=== PATIENT | female | born 1940 | race Caucasian/White ===

== ENCOUNTER 2023-08-15 07:54 | Observation (INO) ==
--- NOTE | 2023-07-15 10:25 | PAT Medication Instructions ---
Medication Instructions Date of Service July 15, 2023 Home Medications amlodipine 10 mg tablet 10 mg PO QAM multivit-iron 18 mg-folic acid 400 mcg-calcium 500 mg-minerals tablet (Women's One Daily) 1 tab PO QAM vitamin E 1 cap PO QAM STOP taking 2 weeks before surgery (or as soon as possible if surgery is within 2 weeks) vitamin E 1 cap PO QAM DO NOT take the morning of surgery multivit-iron 18 mg-folic acid 400 mcg-calcium 500 mg-minerals tablet (Women's One Daily) 1 tab PO QAM Take morning of surgery With a small sip of water, OTHERWISE NOTHING TO EAT OR DRINK AFTER MIDNIGHT: amlodipine 10 mg tablet 10 mg PO QAM Other Notes If you have any questions please call us at [phone] or [phone] or [phone] or [phone]
--- NOTE | 2023-07-16 08:10 | Anesthesiology Consultation ---
Date of Service July 16, 2023 Assessment & Plan (1) Encounter for pre-operative examination: - Infectious disease screening: Per assessment on 07/16/23: No known infectious disease contacts or current infectious disease symptoms. No noted Covid positive test result in past 90 days. - Outpatient joint assessment: Pt currently scheduled for inpatient pathway. If surgeon requests review for outpatient joint pathway, patient is not recommeded candidate for outpatient joint program from anesthesia standpoint. - Preop EKG: Performed 07/16/23 notes fusion complexes. Note written to PCP- Awaiting PCP EKG response + surgeon-ordered preop evaluation (MARY Osorio, appt 07/18). Chart Review Chart Review: Patient seen in Pre Admission Testing Teaching & Discussion Pre-Anesthesia Teaching/Discussion Notes: Instructed NPO after midnight before surgery,except medications with 15 cc of water. Medication instructions provided according to the PAT guidelines. History Surgery Operation Date: 08/15/23 12:30 Proposed Procedures p Left Total Knee Arthroplasty - Sree Moya MD Height/Weight Height: 5 ft Weight: 70 kg Allergies Allergy/AdvReac Type Severity Reaction Status Date / Time codeine Allergy Unknown Dizziness, Verified 07/16/23 09:41 mental changes Medications Home Medications Medication Instructions Recorded Confirmed Last Taken amlodipine 10 mg tablet 10 mg PO QAM 07/11/23 07/11/23 Unknown multivit-iron 18 mg-folic acid 400 1 tab PO QAM 07/11/23 07/11/23 Unknown mcg-calcium 500 mg-minerals tablet (Women's One Daily) vitamin E 1 cap PO QAM 07/11/23 07/11/23 Unknown atorvastatin 20 mg tablet 20 mg PO DAILY 07/16/23 07/16/23 Unknown Past Medical History Medical History Hypertension Exercise / Class Metabolic Activity III < 4 Walking/Shop/Light housework Past Surgical History Surgical History History of total right knee replacement Hx of total hysterectomy with removal of both tubes and ovaries Hx of appendectomy Past Anesthesia History No Family Hx of Anesthesia Complications and Other (Awareness towards end of right TKA) History of PONV No Hx of PONV and No Hx of Motion Sickness Social History Smoking Status: Never smoker Do You Dip or Chew Tobacco: No Hx Alcohol Use: No Hx Substance Use: No substance use type: does not use Review of Systems Patient denies chest pain, shortness of breath, dyspnea on exertion, fever, chills, cough, wheezing, palpitations. Physical Exam Vital Signs VITALS BP 138/66 P 85 TEMP 98.2 SP02 96%RA RESP 16 PHYSICAL Mildly decreased cervical extension range of motion. Full TMJ range of motion. TMD 3.5 finger breaths Mallampati Score 2 Dentition: intact Lungs: coarse breath sounds Cardiac: regular rate and rhythm, no murmurs noted Spine: normal Carotid arteries: negative bruit Extremities: no LE edema Lab Results Anesthesia Preop Results Results Anesthesia Widget: WBC 5.26 K/ul (4.8-10.8) 07/16/23 Hgb 12.9 g/dl (12.0-16.0) 07/16/23 Hct 40.4 % (37.0-47.0) 07/16/23 Plt 174 K/uL (130-400) 07/16/23 Na 141 mmol/L (136-145) 07/16/23 K 3.8 mmol/L (3.5-5.1) 07/16/23 Cl 104 mmol/L (98-107) 07/16/23 CO2 30 mmol/L (21-32) 07/16/23 BUN 11 mg/dl (6-23) 07/16/23 Creat 0.67 mg/dl (0.6-1.2) 07/16/23 Glucose Level 86 mg/dl (70-99(Fasting)) 07/16/23 PT 10.7 Seconds (9.0-12.0) 07/16/23 PTT 30 Seconds (21-31) 07/16/23 INR 1.0 (0.9-1.1) 07/16/23 Urine Color Yellow 07/16/23 Urine Appearance Clear (Clear) 07/16/23 Urine pH 7.0 (4.5-7.5) 07/16/23 Urine Specific Mccammon 1.015 (1.000-1.030) 07/16/23 Urine Protein Negative (Negative) 07/16/23 Urine Glucose (UA) Negative (Negative) 07/16/23 Urine Ketones Negative (Negative) 07/16/23 Urine Blood Negative (Negative) 07/16/23 Urine Nitrite Negative (Negative) 07/16/23 Urine Bilirubin Negative (Negative) 07/16/23 Urine Urobilinogen Negative (Negative) 07/16/23 Urine Leukocyte Esterase Negative (Negative) 07/16/23 Blood Type O Positive 07/16/23 Antibody Screen NEGATIVE 07/16/23 Testing Electrocardiogram Date: 07/16/23 SR with fusion complexes and aberrant conduction at 79bpm. iRBBB. "Otherwise normal ECG" Chest X-Ray Date: 07/16/23 FINDINGS: Cardiomediastinal and hilar silhouettes are within normal limits. No pneumothorax, pleural effusion or airspace consolidation. Degenerative changes of the shoulders and spine. There are a few healed chronic left-sided rib fractures. IMPRESSION: No acute process.
--- NOTE | 2023-08-13 11:33 | History & Physical Report ---
Date of Service August 13, 2023 Assessment & Plan (1) Primary osteoarthritis of left knee: Plan: Treatment options discussed with the patient. She has failed conservative measures and would like to proceed with surgery. Risks, benefits and alternatives to surgery including but not limited to infection, DVT, pain, stiffness, need for revision surgery, damage to blood vessels, damage to nerves, PE, , were discussed with the patient and they wish to proceed. Plan on left total knee arthroplasty scheduled for 08/15/[address] Moya at [facility]. Plan on home therapy post op. Plan on aspirin 81mg twice daily for 1 mo post op for DVT prophylaxis. All questions answered. Patient will follow up post op. History of Present Illness Chief Complaint: Left knee pain Primary Care Provider: Campos Victoria MD 83yo female with PMHx significant for HTN who presents with ongoing left knee pain. Pain is interfering with her daily activity. She has failed conservative measures. She would like to proceed with surgery. Patient denies headaches, sweats, fevers, chills, double vision, blurred vision, cough, sore throat, dysphagia, chest pain, sob, wheezing, n/v/d/c, numbness, tingling, fatigue, urinary symptoms, mood disorders. ROS positive for left knee pain and stiffness. Allergies Allergy/AdvReac Type Severity Reaction Status Date / Time codeine Allergy Unknown Dizziness, Verified 07/16/23 09:41 mental changes Home Medications Medication Instructions Recorded Confirmed Type amlodipine 10 mg tablet 10 mg PO QAM 07/11/23 07/11/23 History multivit-iron 18 mg-folic acid 400 1 tab PO QAM 07/11/23 07/11/23 History mcg-calcium 500 mg-minerals tablet (Women's One Daily) vitamin E 1 cap PO QAM 07/11/23 07/11/23 History atorvastatin 20 mg tablet 20 mg PO DAILY 07/16/23 07/16/23 History Past Med/Surg History Medical History Hypertension Surgical History History of total right knee replacement Hx of total hysterectomy with removal of both tubes and ovaries Hx of appendectomy Social History Smoking Status: Never smoker Second Hand Exposure: No; Do You Dip or Chew Tobacco: No; Tobacco Cessation Education Requested by Patient: No Hx Alcohol Use: No Hx Substance Use: No Preferred Language: Luxembourgish Communication Ability: Effective Compensation Consulting Manager Required: No Beliefs That Will Affect Care: None Current Living Situation: Spouse Other Information That Helps Us Care for You: No Feels Safe at Home: Yes Safety Concerns: Feels Safe At This Time Assistive Devices: Glasses Review of Systems All systems reviewed & are unremarkable except as noted in HPI & below Physical Exam Constitutional: well developed and well nourished; no acute distress Eyes: PERRL, conjunctivae normal, anicteric sclerae ENMT: external ear and nose normal, oropharynx normal Neck: trachea midline, no thyromegaly Respiratory: normal respiratory effort, lungs clear to auscultation Cardiovascular: RRR, no murmur, no edema Musculoskeletal: Left knee: Valgus alignment. Mild effusion. ROM 0-120 degrees. Stable to valgus and varus stress test. Skin: no rashes, warm and dry Neurologic: patellar DTR's 2+ bilat, sensation intact Psychiatric: A+Ox3, euthymic affect Results & Data Diagnostic Findings Four view x-rays left knee demonstrate lateral compartment osteoarthritis and patellofemoral osteoarthritis with [id number] lateral compartment on weight- bearing films with subchondral sclerosis and osteophytes. Patient also has osteophytes patellofemoral joint. Patella central line but they are fairly large osteophytes patellofemoral joint and some osteopenia of the bones. Right knee has a well-aligned cemented [employer] Nephew journey knee replacement.
[~2023-08-15 07:54] MED LIST: ACETAMINOPHEN 500 MG TAB PO SCH; BUPIVACAINE 0.5 % 5 MG/1 ML PF 10ML VIAL ONE; CeleBREX 200 MG CAP PO SCH; FAMOTIDINE 20 MG TAB PO SCH; GABAPENTIN 300 MG CAP PO SCH; LR 60ML/HR IV SCH; METOCLOPRAMIDE HCL 10 MG TABLET PO SCH; MIDAZOLAM HCL 1 MG/ML 2ML VIAL ONE; ROPIV 0.5% 246mg, Ketorolac 30mg, EPINEPHrine 0.5mg in NSS INFIL SCH; ROPIVACAINE 0.5% 5 MG/ML 30 ML VIAL ONE; TRANEXAMIC ACID 1,000 MG **IV Intra-op IV SCH; TRANEXAMIC ACID 1,000 MG **IV Pre-op IV SCH; ceFAZolin 2000MG 2,000 MG/15 ML SYR IV SCH; dexAMETHasone**PF** 10 MG/ML VIAL IV SCH
--- OUTSIDE RECORDS SUMMARY | 2023-08-15 09:17 | External Medical Summary | Summary of Care ---
Author Name Unknown Organization [facility] Address [address] [place] [address] Phone [phone] Care Team Providers Care Contracts Director Name Role Phone Campos Skaggs MD Primary Care P rovider Reason for Visit * Reason Comments pre-op exam Patient is here for a pre-op physical exam. Patient states she has no concerns. Encounter Details Date Type Department Care Team (Latest Contact Info) Description 07/18/2023 9:30 AM EST Office Visit [address] [phone] Campos Skaggs MD [address] [place] [address] [phone] Other specified pre-operative examination*; Primary osteoarthritis of one knee, left; HTN, goal below 140/90; Dyslipidemia, goal LDL below 100; Incomplete right bundle branch block Allergies Active Allergy Reactions Criticality Noted Date Comments Codeine Other (Please comment) 06/25/2023 Tylenol with codeine Patient states she becomes spaced out and dizzy when taking this. documented as of this encounter (statuses as of 07/18/2023) Medications Medication Sig Dispensed Refills Start Date End Date Status VITAMIN E 400 UNIT PO CAPS one daily 0 Active WOMENS ONE DAILY PO TABS one daily 0 Active CALCIUM 500 +D 500-400 MG-UNIT PO TABS one daily 0 Active Atorvastatin Calcium 20 MG Oral Tablet (Lipitor)Indications: Dyslipidemia, goal LDL below 100 TAKE 1 TABLET BY MOUTH DAILY 90 Tablet 1 05/06/2023 Active amLODIPine Besylate 10 MG Oral Tablet (Norvasc)Indications: HTN, goal below 140/90 TAKE 1 TABLET BY MOUTH DAILY 90 Tablet 1 05/06/2023 Active Trospium Chloride 20 MG Oral Tablet (Sanctura)Indications :OAB (overactive bladder) Take 1 Tablet by mouth in the morning and 1 Tablet before bedtime. 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 documented as of this encounter (statuses as of 07/18/2023) Resolved Problems Problem Noted Date Diagnosed Date Resolved Date Menopause 12/15/2007 04/09/2017 NONE 11/24/2003 12/15/2007 rheumatic fever 11/25/2017 Overview: late 30s documented as of this encounter (statuses as of 07/18/2023) Immunizations Name Administration Dates Next Due COVID-19 mRNA, LNP-s, No Pre serve, 2-Dose Series (Moderna) 10/08/2020,09/03/2020 COVID-19, mRNA, LNP-s, PF, B ooster, 100mcg/0.5mg (Moderna) 06/14/2021 Pneumococcal Conjugate Vacc, 13 Valent (Prevnar) 09/20/2016 Pneumococcal Polysaccharide PPV23 (Pneumovax) 06/20/2006 Season Influenza, Quad, PF, Adjuvanted, 65+ Yrs, IM (FLUAD) 05/22/2021,07/27/2020 Seasonal Influenza, PF, 6 M & above, IM , (FluLaval or Fluzone) 06/09/2018,07/17/2017 Seasonal Influenza, Quadriva lent Hd (Fluzone Hd) 05/17/2023,08/30/2022 Seasonal Influenza, Quadriva lent, No Preserve, IM 08/16/2016,08/11/2015 Seasonal Influenza, Split, I IV3, With Preserve, Inj 07/02/2014,06/22/2013,08/20/2012,05/17,05/17/2010,06/22/2009,06/08/2008 ,06/20/2006 Seasonal Influenza, Trivalen t, Adjuvanted, 65+ yrs 08/27/2019 TDAP (age 10 and older)(Boostrix) 12/30/2013 Varicella Zoster Vaccine (Adult) 09/04/2012 documented as of this encounter Social History Tobacco Use Types Packs/Day Years Used Date Smoking Tobacco: Never Smokeless Tobacco: Never Alcohol Use Standard Drinks/Week Comments Never 0 (1 standard drink = 0.6 oz pur e alcohol) PHQ-2 Answer Date Recorded PHQ Adult Total Score 0 05/17/2023 Hunger Vital Sign Answer Date Recorded Worried About Running Out of Food in the Last Ye ar Often true 01/27/2019 Ran Out of Food in the Last Year Often true 01/27/2019 Sex and Gender Information Value Date Recorded Sex Assigned at Female 01/27/2019 6:25 PM EDT Gender Identity Female 01/27/2019 6:25 PM EDT Sexual Orientation Straight 01/27/2019 6: 25 PM EDT Job Start Date Occupation Industry Not on file Not on file Not on file documented as of this encounter Last Filed Vital Signs Vital Sign Reading Time Taken Comments Blood Pressure 118/62 07/18/2023 9:50 AM EST Pulse 92 07/18/2023 9:50 AM EST Temperature 37 C (98.6 F) 07/18/2023 9:50 AM EST Respiratory Rate 18 07/18/2023 9:50 AM EST Oxygen Saturation 97% 07/18/2023 9:50 AM EST Inhaled Oxygen Concentration - - Weight 69 kg (152 lb 1.6 oz) 07/18/2023 9:50 AM EST Height - - Body Mass Index 29.7 08/30/2022 10:13 AM EST documented in this encounter Progress Notes * Campos Skaggs MD - 07/18/2023 10:10 AM EST Images from the original note were not included. Pre-Operative Medical Evaluation Procedure Information Type of Surgery: Total left knee arthroplasty Referring Physician / Surgeon: ANN MARIE Basilio Date of procedure: 08/15/2023 Brief History of Present Illness: Patient is a 83-year-old female with past medical history of hypertension, peripheral vascular disease, prediabetes, dyslipidemia and primary osteoarthritis of the left knee. Denies past hx of MRSA. Medical History Problem List: Incomplete right bundle branch block (07/18/2023) Other atherosclerosis of [place] arteries of extremities, bilateral legs (HCC) (02/22/2022) Food insecurity (03/13/2021) Prediabetes (12/24/2017) Dyslipidemia, goal LDL below 100 (09/20/2016) Seborrheic keratosis (08/11/2015) HTN, goal below 140/90 (09/18/2012) Menopause (12/15/2007) ADVANCE DIRECTIVE INFORMATION (10/14/2007) NONE (11/24/2003) rheumatic fever Current Medications Trospium Chloride 20 MG Oral Tablet (Sanctura), 20 mg, Oral, BID(AM/PM) amLODIPine Besylate 10 MG Oral Tablet (Norvasc), 10 mg, Oral, Daily(AM) Atorvastatin Calcium 20 MG Oral Tablet (Lipitor), 20 mg, Oral, Daily(AM) CALCIUM 500 +D 500-400 MG-UNIT PO TABS, one daily VITAMIN E 400 UNIT PO CAPS, one daily WOMENS ONE DAILY PO TABS, one daily Allergies: Codeine Past Medical History: has a past medical history of Menopause (12/15/2007), Other atherosclerosis of cloverdale arteries of extremities, bilateral legs (HCC) (02/22/2022), and rheumatic fever. Past Surgical History: has a past surgical history that includes Total Abd Hysterectomy w/wo Removal of Tube(s) (07/21/87); dilation and curettage (d&c); and removal of appendix (1961). Social History: reports that she has never smoked. She has never used smokeless tobacco. She reports that she does not drink alcohol and does not use drugs. Family History: family history includes Diabetes in her mother; skin disorders in an other family member. Anesthesia History Type of Anesthesia: General Endotracheal and Caudal block Anesthesia reaction: No History of surgical complications: None Personal history of venous thromboembolic disease: None Physical Exam Vitals: 07/18/23 0950 Temp: 37 C (98.6 F) Pulse: 92 Resp: 18 SpO2: 97% BP: 118/62 Labs reviewed and are significant for: Hemoglobin 12.9, hematocrit 40.4, serum creatinine 0.67, GFR93, INR 1.1 EKG by my review is significant for: Sinus rhythm with fusion complexes and premature atrial complexes with aberrant conduction. Incomplete right bundle branch block is new compared to EKG from 07/13/2010. Chest x-ray: No acute process. Surgical Risk Scoring Revised Cardiac Risk Index (RCRI) High-risk type of surgery (examples include vascular and any open intraperitoneal or intrathoracic procedures): 0=No History of ischemic heart disease (history of myocardial infarction or positive exercise test, current compliant of chest pain considered to be secondary to myocardia ischemia, use of nitrate therapy, or ECG with pathological Q waves; do not count prior coronary revascularization procedure unless one of the other criteria for ischemic heart disease is present): 0=No History of heart failure: 0=No History of cerebrovascular disease: 0=No Diabetes mellitus requiring treatment with insulin: 0=No Preoperative serum creatinine >2.0 mg/dL (177 micromol/L): 0=No Pt has revised cardiac index score of: No Risk Factors- 0.4% (95% CI: 0.1-0.8) Screening for Obstructive Sleep Apnea (STOP-BANG) Do you Snore loudly? 0=No Do you often feel Tired, Fatigued, or Sleep? 0=No Has anyone Observed you Stop Breathing or Choking/Gasping during sleep? 0=No Do you have or are you being treated for High Blood Pressure? 1=Yes BMI over 35? 0=No Age older than 50? 1=Yes Neck size large? (For males - 17 inches or larger, For females - 16 inches or larger) 0=No Male? 0=No Score 0-2:low risk YOHAN, 3-4: intermediate risk of YOHAN, 5-8: high risk YOHAN 2 Assessment and Plan Other specified pre-operative examination Normal exam. Incomplete right bundle branch block is new. Patient is asymptomatic. No need for further cardiovascular workup at this point. Patient is medically cleared and optimized for above procedure under general anesthesia. Primary osteoarthritis of one knee, left Management per orthopedic surgery HTN, goal below 140/90 Well controlled. Continue same medications Dyslipidemia, goal LDL below 100 Well controlled, continue same medications. Functional Assessment They are able to walk up a flight of stairs and do heavy house work like vacuuming. The patient's functional status is good (greater than 4 METS). 1 MET: 4 METs: 4-10 METs: Can take care of self, such as eat, dress or use the toilet. Can walk to block or go up a flight of steps. Can do heavy house work. Surgical Risk Assessment Patient is low medical risk for the listed procedure. Medication adjustments: None Additional consults or testing: None documented in this encounter Nursing Notes * Nevaeh Quiroga LPN - 07/18/2023 9:54 AM EST The patient has been properly identified by confirmation of name and date of . Chief Complaint Patient presents with pre-op exam Patient is here for a pre-op physical exam. Patient states she has no concerns. documented in this encounter Plan of Treatment Upcoming Encounters Date Type Department Care Team (Late st Contact Info) Description 08/20/2023 2:20 PM EST Office Visit Dermatology[address] [address] Caro Linn PA-C [address] [place] [address] KORIN Dudley [phone] 11/04/2023 7:50 AM EDT Laboratory Laboratory Patient [address] [phone] Pending Sale To [facility] [address] [address] 11/11/2023 12:20 PM EDT Office Visit [address] [place] [phone] Campos Skaggs MD [address] [place] [phone] Health Maintenance Due Date Last Done Comments Zoster Vaccines (2 of 3) 10/30/2012 09/04/2012 DXA Scan 12/16/2019 12/15/2012, 11/03, 11/01/2007, Additional history exists COVID-19 Vaccine (4 - 2022- season) 2023 06/14/2021, 10/08/2020, 09/03/2020 HbA1c 07/23/2023 07/23/2022, 02/02, 08/17/2021, Additional history exists DTaP,Tdap,and Td Vaccines (2 - Td or Tdap) 12/31/2023 12/30/2013 Depression Screening 05/17/2024 05/17/2023 GFR 07/16/2024 07/16/2023, 09/0 02/2023, 07/23/2022, Additional history exists Albumin/Creatinine Ratio 04/11/2026 023, 08/25/2021, 05/25/2005 Pneumococcal Vaccine: 65+ Years Completed 09/20/2016, 06/20/2006 Influenza Vaccine (FLU shot) Completed , 08/30/2022, 05/22/2021, Additional history exists GARDASIL-HPV IMMUNIZATION SERIES Aged Out No longer eligible based on patient's age to complete this topic Hepatitis B Aged Out No longer eligi ble based on patient's age to complete this topic MENINGOCOCCAL (MENACTRA/MENVEO) Aged Out No longer eligible based on patient's age to complete this topic documented as of this encounter Medical Devices Not on filedocumented as of this encounter Visit Diagnoses Diagnosis Other specified pre-operative examination- Primary Primary osteoarthritis of one knee, left HTN, goal below 140/90 Unspecified essential hypertension Dyslipidemia, goal LDL below 100 Other and unspecified hyperlipidemia Incomplete right bundle branch block Right bundle branch block documented in this encounter Care Teams Contracts Director Relationship Specialty Start Date End Date Campos Skaggs MD [address] [place] [phone] PCP - General Family Medicine 12/09/20 documented as of this encounter
--- OUTSIDE RECORDS SUMMARY | 2023-08-15 09:17 | External Medical Summary | Summary of Care ---
Author Name Unknown Organization [facility] Address [address] [place] [facility] [place] [address] Phone [phone] Care Team Providers Care Termite Renewal Inspector Name Role Phone Campos Skaggs MD Primary Care P rovider Reason for Visit * Reason Onset Date Comments Advice 07/18/2023 Encounter Details Date Type Department Care Team ([facility] Contact Info) Description 07/18/2023 Telephone Family Practice [address] [phone] Campos Skaggs MD [address] [place] [phone] Advice Allergies Active Allergy Reactions Criticality Noted Date [...] on file documented as of this encounter Miscellaneous Notes * Telephone Encounter - Thu Haywood OSA - 07/18/2023 11:44 AM EST Pre-op office visit note faxed to [facility] [phone] and [facility] [phone] documented in this encounter Plan of Treatment Upcoming Encounters Date Type Department Care Team (Late st Contact Info) Description 08/20/2023 2:20 PM [place] [address] Caro Linn PA-C [address] [place] [address] KORIN Dud[place] [phone] 11/04/2023 7:50 AM EDT Laboratory [facility] [place] [address] [place] [address] [facility] [address] [place] [phone] 11/11/2023 12:20 PM EDT [facility] [address] [place] [address] Campos Skaggs MD [address] [place] [address] [phone] Health Maintenance Due Date Last Done Comments Zoster Vaccines (2 of 3) 10/30/2012 09/04/2012 DXA Scan 12/16/2019 12/15/2012, 11/03, 11/01/2007, Additional history exists COVID-19 Vaccine (4 - season) 2023 06/14/2021, 10/08/2020, 09/03/2020 HbA1c 07/23/2023 [...] Not on filedocumented as of this encounter Care Teams Termite Renewal Inspector Relationship Specialty Start Date End Date Campos Skaggs MD [address] [place] [phone] PCP - General Family Medicine 12/09/20 documented as of this encounter
--- OUTSIDE RECORDS SUMMARY | 2023-08-15 09:17 | External Medical Summary | Summary of Care ---
Author Name Unknown Organization [facility] Address [address] [facility] [address] Phone [phone] Care Team Providers Care Help Desk Consultant Name Role Phone Campos Skaggs MD Primary Care P rovider Encounter Details Date Type Department Care Team (Late st Contact Info) Description 07/16/2023 Result Scan Unspecified Department <No scans attached> Allergies Active Allergy Reactions Criticality Noted Date Comments Morphine And Related 01/10/2001 documented as of this encounter (statuses as of 07/16/2023) Medications Medication Sig Dispensed Refills Start Date [...] as of this encounter (statuses as of 07/16/2023) Active Problems Problem Noted Date Diagnosed Date 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 documented as of this encounter (statuses as of 07/16/2023) Resolved Problems Problem Noted Date Diagnosed Date Resolved Date Menopause 12/15/2007 04/09/2017 NONE 11/24/2003 12/15/2007 rheumatic fever 11/25/2017 Overview: late 30s documented as of this encounter (statuses as of 07/16/2023) Immunizations Name Administration Dates Next Due COVID-19 [...] on file documented as of this encounter Plan of Treatment Upcoming Encounters Date Type Department Care Team ([facility] Contact Info) Description 07/18/2023 9:30 AM EST Office Visit [address] [phone] Campos Skaggs MD [address] [place] [phone] 08/20/2023 2:20 PM EST Office Visit [address] [address] Caro Linn PA-C [address] [place] [address] KORIN Dudley [id number] 11/04/2023 7:50 AM EDT Laboratory Laboratory Patient Service [address] [phone] [address] 11/11/2023 12:20 PM EDT Office Visit [address] [phone] Campos Skaggs MD [address] [place] [phone] Health Maintenance Due Date Last Done Comments Zoster Vaccines (2 of 3) 10/30/2012 09/04/2012 DXA Scan 12/16/2019 12/15/2012, 11/03, 11/01/2007, Additional history exists COVID-19 Vaccine (4 - season) 2023 06/14/2021, 10/08/2020, 09/03/2020 HbA1c 07/23/2023 07/23/2022, 02/02, 08/17/2021, Additional history exists DTaP,Tdap,and Td Vaccines (2 - Td or Tdap) 12/31/2023 12/30/2013 GFR 04/11/2024 07/16/2023, 02/2023, 07/23/2022, Additional history exists Depression Screening 05/17/2024 05/17/2023 Albumin/Creatinine Ratio 04/11/2026 023, 08/25/2021, 05/25/2005 Pneumococcal [...] Not on filedocumented as of this encounter Procedures Procedure Name Priority Date/Time Associated Diagnosis Comments EKG SCANNED RESULT 07/16/2023 documented in this encounter Results * EKG SCANNED RESULT (07/16/2023) 07/16/2023 No Physician Data Unknown EKG documented in this encounter Care Teams Help Desk Consultant Relationship Specialty Start Date End Date Campos Skaggs MD [address] [place] [phone] PCP - General Family Medicine 12/09/20 documented as of this encounter
--- OUTSIDE RECORDS SUMMARY | 2023-08-15 09:17 | External Medical Summary | Summary of Care ---
Author Name Unknown Organization [facility] Address [address] [place] [address] Phone [phone] Care Team Providers Care Photovoltaic Panel Installer Name Role Phone Campos Skaggs MD Primary Care P rovider Encounter Details Date Type Department Care Team ([facility] st Contact Info) Description 07/16/2023 Orders Only Family [address] [phone] Campos Skaggs MD [address] [place] [phone] Allergies Active Allergy Reactions Criticality Noted Date [...] Care Team (Late st Contact Info) Description 07/18/2023 9:30 AM EST Office Visit [address] [phone] Campos Skaggs MD [address] [place] [phone] 08/20/2023 2:20 PM EST Office Visit Dermatology[address] [address] Caro Linn PA-C [address] [place] [address] KORIN Dudley [phone] 11/04/2023 7:50 AM EDT Laboratory Laboratory Patient Service [address] [phone] Have, Lab Lock [address] [place] [phone] 11/11/2023 12:20 PM EDT Office Visit [address] [phone] Campos Skaggs MD [address] [place] [phone] Health Maintenance Due Date Last Done Comments Zoster Vaccines (2 of 3) 10/30/2012 09/04/2012 DXA Scan 12/16/2019 12/15/2012, 11/03, 11/01/2007, Additional history exists COVID-19 Vaccine ( season) 2023 06/14/2021, 10/08/2020, 09/03/2020 HbA1c 07/23/2023 07/23/2022, 02/02, 08/17/2021, Additional history exists DTaP,Tdap,and Td Vaccines (2 - Td or Tdap) 12/31/2023 12/30/2013 GFR 04/11/2024 07/16/2023, 0902/2023, 07/23/2022, Additional history exists Depression Screening 05/17/2024 [...] Procedure Name Priority Date/Time Associated Diagnosis Comments XR CHEST 2 VIEWS Routine 07/16/2023 CHEMISTRY-OUTSIDE Routine 07/16/2023 documented in this encounter Results * (ABNORMAL) CHEMISTRY-OUTSIDE (07/16/2023) Not all results display below - see scan for full detail SCAN INCLUDES: PT INR, PTT, BMP, ALB, CBCD OUTSIDE LAB (SEE SCANNED REPORT) CREATININE-OUTSID E LAB 0.67 0.6 - 1.2 MG/DL OUTSIDE LAB (SEE SCANNED REPORT) EGFR-OUTSIDE LAB 80.7 ML/MIN OUT SIDE LAB (SEE SCANNED REPORT) POTASSIUM-OUTSIDE LAB 3.8 3.5 - 5.1 MMOL/L OUTSIDE LAB (SEE SCANNED REPORT) GLUCOSE-OUTSIDE LAB 86(A) 70 MG/DL OUTSIDE LAB (SEE SCANNED REPORT) HOURS FASTING OUTSID E LAB (SEE SCANNED REPORT) TRIGLYCERIDES-OUT SIDE LAB OUTSIDE LAB (SEE SCANNED REPORT) CHOLESTEROL-OUTSI DE LAB OUTSIDE LAB (SEE SCANNED REPORT) HDL-OUTSIDE LAB OUTS GARY LAB (SEE SCANNED REPORT) CHOL/HDL RATIO-OUTSIDE LAB OUTSIDE LA B (SEE SCANNED REPORT) LDL (CALCULATED)-OUTS GARY LAB OUTSIDE LAB (SEE SCANNED REPORT) LDL (DIRECT MEASURE)-OUTSIDE LAB OUTSIDE LAB (SEE SCANNED REPORT) HEMOGLOBIN, J2V-MMARUAE LAB OUTSIDE LAB (SEE SCANNED REPORT) PHOSPHORUS-OUTSID E LAB OUTSIDE LAB (SEE SCANNED REPORT) PTH-OUTSIDE LAB OUTS GARY LAB (SEE SCANNED REPORT) MICROALBUMIN RATIO-OUTSIDE LAB OUTSIDE LA B (SEE SCANNED REPORT) PROTEIN, UA-OUTSIDE LAB OUTSIDE LAB (SEE SCANNED REPORT) HEMOGLOBIN-OUTSID E LAB 12.9 12.0 - 16.0 G/DL OUTSIDE LAB (SEE SCANNED REPORT) 07/16/2023 Sree Moya MD LABORATORY OUTSIDE LAB (SEE SCANNED REPORT) * XR CHEST 2 VIEWS (07/16/2023) Anatomical Region Laterality Modality Chest Other 07/16/2023 Sree Moya MD RADIOLOGY (RAD GEN ERAL) documented in this encounter Care Teams Photovoltaic Panel Installer Relationship Specialty Start Date End Date Campos Skaggs MD [address] [place] [phone] PCP - General Family Medicine 12/09/20 documented as of this encounter
--- NOTE | 2023-08-15 09:26 | History & Physical Bridge Note ---
Date of Service August 15, 2023 History & Physical Bridge Note I have examined the patient, reviewed the History & Physical and in the interval since the performance of the History & Physical I have noted the following changes of clinical significance: no changes noted
[2023-08-15] MEDS ORDERED: ORTHO JOINT ANESTHETIC ONE (09:33)
[2023-08-15] MEDS ORDERED: LIDOCAINE 2% 2 ML VIAL/AMP(20MG/ML) INFIL ONE (09:59)
[2023-08-15] MEDS ORDERED: PROPOFOL IV EMULSION 10 MG/ML 20 ML VIAL IV ONE (09:59)
[2023-08-15] MEDS ORDERED: ONDANSETRON INJ 2 MG/ML 2 ML VIAL ONE (09:59)
--- NOTE | 2023-08-15 11:40 | Post Operative Brief Note ---
Immediate Post Op Note v1 Date of Surgery August 15, 2023 Pre & Post Diagnosis Operation Date: 08/15/23 09:40 Pre-Op Diagnosis: Left Knee Osteoarthritis Post-Op Diagnosis: Left Knee Osteoarthritis I identified the patient and participated in the time-out.: Yes Procedure Operation Date: 08/15/23 09:40 Actual Procedures p Left Total Knee Arthroplasty(Left) - Sree Moya MD Surgeon Sree Moya MD Tree Scout Joseph LANGLEY Estimated Blood Loss 5 Findings Consistent with Post-Op Diagnosis Specimens bone cuts Drains Hemovac Drain (Duel 10fr drains with 400ml evacuator) Anesthesia Type MAC Spinal Regional Complications none Disposition Disposition: Recovery Room Overlapping Procedure I was immediately available: during the entire case.
--- NOTE | 2023-08-15 11:47 | Operative Report ---
Post Operative Report Pre & Post Diagnosis Operation Date: 08/15/23 09:40 Pre-Op Diagnosis: Left Knee Osteoarthritis Post-Op Diagnosis: Left Knee Osteoarthritis I identified the patient and participated in the time-out.: Yes Procedure Operation Date: 08/15/23 09:40 Actual Procedures p Left Total Knee Arthroplasty(Left) - Sree Moya MD Surgeon Sree Moya MD Face Hardener Joseph LANGLEY Estimated Blood Loss 5 Findings Consistent with Post-Op Diagnosis Specimens bone cuts Drains 2 Hemovac Anesthesia Type MAC Spinal Regional Complications none Disposition Disposition: Recovery Room Indications 83 female progressive osteoarthritis left knee now [id number] lateral compartment with valgus knee instability and pain Description of Procedure the patient was taken to the operating room and anesthetized under Spinal MAC regional block. Patient was placed supine on the the operating table. A pneumatic tourniquet was placed about the Left upper thigh. The knee exam demonstrated 5 degree flexion contracture with good flexion to 125 degrees with [id number] crepitation and mechanical catching of the knee with range of motion with pseudolocking. No pseudolaxity laterally The involved leg was elevated exsanguinated with Esmarch bandage and the pneumatic tourniquet was raised to 300 millimeters mercury. A longitudinal incision was made across the anterior knee. Skin flaps were elevated. An incision was made into the medial retinaculum and extended up into the mid third of the quadriceps tendon and ex tended down to the tibial tubercle. Intra-articular findings demonstrated patellofemoral lateral compartment osteoarthritis [id number] in the lateral compartment with some bone loss. There is a small ganglion cyst and loose body in the intra-articular notch area . There was a chronic lateral meniscus tear. The knee was exposed by excising cruciate ligaments and menisci. The infrapatellar fat pad was resected. The fat pad over the anterior femur at the upper aspect of the articular surface was resected for placement of the component in that area. A subperiosteal peel lateral release was performed around the patella. The [employer]by[employer] 2.0 total knee arthroplasty system was utilized for the procedure. The custom femoral cutting guide was pinned in position. The distal femoral cut was made. The size 5, 5 in 1 cutting block was placed. The anterior posterior and chamfer cuts were made. The knee was extended and a free hand cut technique was performed to the patella. The patella width was measured and the width was reproduced using a 32 symmetrical patella component. The excess lateral facet was beveled off to prevent any impingement. 3 drill holes are made for the patella component pegs. The tibia was then subluxed. The custom tibial cutting block was pinned in position and the proximal tibial cut was made with the oscillating saw. Flexion and extension gaps were balanced. minor lateral capsular releases were required. The size 3 tibial trial was externally rotated in line with the tibial tubercle and pinned in position. The punch for the stem was used. The femoral trial was inserted and centered the notch cutting devices were used and the collet was placed. Tibial trials were used for the insert. The size 15 posterior stabilized trial gave balanced ligaments through full range of motion. Patella tracking was assessed with range of motion. The patella tracked centrally. The trials were removed. The Orthomix anesthetic cocktail was injected per protocol. The cut bone surfaces and soft tissue were copiously irrigated with pulsatile lavage saline solution. The final components were cemented with Refobacin cement. The final components were Win[employer]hew journey 2.0 size left posterior stabilized femoral component, 3 left tibial component, 15 left tibial posterior stabilized polyethylene and 32 symmetrical polyethylene patella Xperience irrigation was placed over metal tray prior to polyethyle insertion. After the cement cured, the knee was then copiously irrigated with pulsatile lavage Xperience solution. 2 drains were brought out laterally connected to Hemovac. The quadriceps tendon and medial retinaculum were closed with interrupted [id number] #1 Vicryl sutures. The knee was taken through full range of motion and repair was secure. Knee range of motion was 0 through 135 degrees. the subcutaneous tissues were closed with 2-0 Vicryl sutures. The skin was closed with [place]. A Standard sterile dressing was applied. The tourniquet was let down and the patient had good capillary refill to the extremity. The patient tolerated the procedure well. My physician regulatory assistant Joseph LANGLEY participated as grooming assistant and was integral part in all aspects of the procedure including prepping, draping, leg positioning, soft tissue retraction, instrument management and assisted in the closure , dressing application and will participate in postoperative care the patient. I attest to the content of the Intraoperative Record and any orders documented therein. Any exceptions are noted below.
--- NOTE | 2023-08-15 12:09 | XRay Report ---
TWO VIEWS LEFT KNEE CLINICAL HISTORY: Postoperative examination. FINDINGS: AP and crosstable lateral portable views of the left knee are obtained. A left knee arthrop lasty is in near anatomic alignment. There has been undersurface remodeling of the patella. No acute fracture is seen. There are expected postoperative changes around the knee including skin clips, a van rgical drain, soft tissue edema, and subcutaneous gas. IMPRESSION: Expected postoperative changes status post left knee arthroplasty. No acute fracture is s een. ACT 112: Negative or not required by law. Electronically signed by: Ede Oakley M.D. 08/15/2023 12:07 PM
[2023-08-15] MEDS ORDERED: NALOXONE HCL 0.4 MG/1 ML VIAL/CARP IV PRN (13:03)
[2023-08-15] MEDS ORDERED: bisacodyL 10 MG SUPP PR PRN (13:03)
[2023-08-15] MEDS ORDERED: HYDROmorphone INJ 0.5 MG/0.5 ML SYR IV PRN (13:03)
[2023-08-15] MEDS ORDERED: METOCLOPRAMIDE HCL INJ 5 MG/ML 2 ML VIAL IV PRN (13:03)
[2023-08-15] MEDS ORDERED: SODIUM CHLORIDE 0.9% 1,000 ML IV SCH (13:03)
[2023-08-15] MEDS ORDERED: ONDANSETRON INJ 2 MG/ML 2 ML VIAL IV PRN (13:03)
[2023-08-15] MEDS ORDERED: MAGNESIUM HYDROXIDE SUSP 30 ML UDC PO PRN (13:03)
[2023-08-15] MEDS ORDERED: oxyCODONE HCL IR 5 MG TAB (IMMEDIATE RELEASE) PO PRN (13:03)
--- NOTE | 2023-08-15 13:24 | Anesthesiology Progress Note ---
Date of Service August 15, 2023 Anesthesia Post Procedure Vital Signs Vital Signs: Temp Pulse Pulse Resp BP Pulse Ox O2 Del Method 08/15/23 13:14 97.7 F 82 16 124/68 92 Room Air 08/15/23 12:51 97.9 F 84 16 128/66 96 Room Air 08/15/23 12:30 76 18 121/59 L 98 Nasal Cannula 08/15/23 12:20 97.5 F L 80 20 121/64 98 Nasal Cannula 08/15/23 12:10 97.5 F L 71 12 113/54 L 98 Nasal Cannula 08/15/23 12:00 75 14 114/60 97 Nasal Cannula 08/15/23 11:50 76 15 108/55 L 100 Oxymask 08/15/23 11:40 78 20 115/58 L 97 Oxymask 08/15/23 11:39 97.9 F 78 16 119/61 98 Oxymask 08/15/23 09:05 98.1 F 79 20 144/71 H 96 Room Air O2 Flow Rate 08/15/23 13:14 08/15/23 12:51 08/15/23 12:30 2 08/15/23 12:20 2 08/15/23 12:10 2 08/15/23 12:00 2 08/15/23 11:50 3 08/15/23 11:40 6 08/15/23 11:39 6 08/15/23 09:05 Transfer of Care Handoff Completed per policy Notes Mental Status: alert / awake / arousable and participated in evaluation Patient Amnestic to Procedure: Yes Nausea / Vomiting: adequately controlled Pain: adequately controlled Airway Patency, RR, SpO2: stable & adequate BP & HR: stable & adequate Hydration State: stable & adequate Neuraxial Anesthesia: was administered and sensory block is resolving Anesthetic Complications: no major complications apparent and Pt Satisfied with anesthetic care
[2023-08-15] MEDS: ACETAMINOPHEN 500 MG TAB PO SCH ×2 (13:57→21:00)
--- NOTE | 2023-08-15 15:05 | Hospitalist Consultation ---
Date of Consultation August 15, 2023 Assessment & Plan (1) S/P total knee arthroplasty: (2) Dyslipidemia: (3) Hypertension: Plan This is a 83yo F with a PMH of HTN, incomplete RBBB, HLD and other medical problems listed below who is POD#[address] Moya. S/p L TKA POD#[address] Moya. Per ortho for pain control, wound care, anticoagulation and activities Monitor H&H (pre-op hgb 12.9, EBL 5ml), continue incentive spirometry, PT/OT when appropriate HTN Normotensive. Continue home amlodipine HLD Chronic; stable. Continue atorvastatin DVT Ppx: ASA 81mg BID per primary Code status: FULL PCP: Luciano Fu Dispo: Per primary Patient seen in collaboration with Dr. Mccormick. Please see addendum. Thank you for this consultation. We will follow the patient with you during their hospital stay. You can reach a member of the [facility] Hospitalist Team 25/02 via [employer]. Supervising Physician Co-Signing Physician Notes Patient seen and examined independently. Discussed with above provider. POD#[address] Moya. Comfortable; not in distress. Denies fever, chills, chest pain, shortness of breath, abdominal pain or urinary symptoms. PT OT eval Pain control History of Present Illness Reason for Consultation: post op med mgmt Attending Physician: Sree Moya MD History of Present Illness This is a 83yo F with a PMH of HTN, incomplete RBBB, HLD and other medical problems listed below who is POD#[address] Moya. Patient is feeling comfortably postoperatively and denies any pain or numbness of her distal extremities. Tolerated dinner without issue. Denies any other acute changes since surgery. No fever, chills, lightheadedness, chest pain, shortness of breath, nausea, vomiting, abdominal pain, dysuria, diarrhea or constipation. Follows with Dr. Tank Wolf for primary care. Allergies Allergy/AdvReac Type Severity Reaction Status Date / Time codeine Allergy Unknown Dizziness, Verified 07/16/23 09:41 mental changes Home Medications Medication Instructions Recorded Confirmed Type amlodipine 10 mg tablet 10 mg PO QAM 07/11/23 08/15/23 History multivit-iron 18 mg-folic acid 400 1 tab PO QAM 07/11/23 08/15/23 History mcg-calcium 500 mg-minerals tablet (Women's One Daily) vitamin E 1 cap PO QAM 07/11/23 08/15/23 History atorvastatin 20 mg tablet 20 mg PO DAILY 07/16/23 08/15/23 History Patient History Medical History Incomplete RBBB Dyslipidemia Hypertension Surgical History History of total right knee replacement Hx of total hysterectomy with removal of both tubes and ovaries Hx of appendectomy Family History Other Diabetes Social History Smoking Status: Never smoker Second Hand Exposure: No; Do You Dip or Chew Tobacco: No; Tobacco Cessation Education Requested by Patient: No Hx Alcohol Use: No Hx Substance Use: No Preferred Language: Djiboutian Communication Ability: Effective Box Hinge And Lock Attacher Required: No Beliefs That Will Affect Care: None Current Living Situation: Spouse Other Information That Helps Us Care for You: No Feels Safe at Home: Yes Safety Concerns: Feels Safe At This Time Assistive Devices: Glasses Review of Systems Review of Systems: At least ten systems reviewed and negative except as noted in the HPI. Physical Exam Physical Exam: General Appearance: WD/WN, vitals as above, NAD, resting in bed, pleasant, conversing easily Head: normocephalic, atraumatic Eyes: normal inspection, PERRL, conjunctivae normal ENT: external ear and nose normal, oropharynx normal Neck: normal visual inspection Respiratory: normal respiratory effort, lungs clear to auscultation, no wheeze, rales, rhonchi Cardiovascular: regular rate, rhythm, normal peripheral pulses Abdomen/GI: normal bowel sounds, soft, nontender, no hepatosplenomegaly Extremities/Musculoskeletal: + Left knee with dressing c/d/i, hemovac visualized. Extremities motor strength 5/5 Neurologic: PERRL, EOMI, accommodation nl, no face palsy, no dysarthria, CN's II-XI intact bilaterally and moves all extremities Psychiatric: A+Ox3, euthymic affect Skin: no rashes, normal color, warm/dry Results & Data Results & Data Vital Signs (Past 12 Hours) Vital Signs Temp Pulse Pulse Resp BP Pulse Ox O2 Del Method 08/15/23 14:39 36.5 C 90 18 131/72 93 Room Air 08/15/23 13:48 36.6 C 88 16 125/71 93 Room Air 08/15/23 13:14 36.5 C 82 16 124/68 92 Room Air 08/15/23 12:51 36.6 C 84 16 128/66 96 Room Air 08/15/23 12:30 76 18 121/59 L 98 Nasal Cannula 08/15/23 12:20 36.4 C L 80 20 121/64 98 Nasal Cannula 08/15/23 12:10 36.4 C L 71 12 113/54 L 98 Nasal Cannula 08/15/23 12:00 75 14 114/60 97 Nasal Cannula 08/15/23 11:50 76 15 108/55 L 100 Oxymask 08/15/23 11:40 78 20 115/58 L 97 Oxymask 08/15/23 11:39 36.6 C 78 16 119/61 98 Oxymask 08/15/23 09:05 36.7 C 79 20 144/71 H 96 Room Air O2 Flow Rate 08/15/23 14:39 08/15/23 13:48 08/15/23 13:14 08/15/23 12:51 08/15/23 12:30 2 08/15/23 12:20 2 08/15/23 12:10 2 08/15/23 12:00 2 08/15/23 11:50 3 08/15/23 11:40 6 08/15/23 11:39 6 08/15/23 09:05
[2023-08-15] MEDS: ceFAZolin 1000MG 1,000 MG/7.5 ML SYR IV SCH (17:43)
[2023-08-15] MEDS ORDERED: ceFAZolin 2000MG 2,000 MG/15 ML SYR IV SCH (18:00)
[2023-08-15] MEDS: CeleBREX 200 MG CAP PO SCH (20:59)
[2023-08-15] MEDS ORDERED: SENNA 8.6 MG TAB PO SCH (21:00)
[2023-08-15] MEDS: ASPIRIN 81 MG ECTAB PO SCH (21:00)
[2023-08-15] MEDS: DOCUSATE SODIUM 100 MG CAP PO SCH (21:00)
[2023-08-16] MEDS: ceFAZolin 1000MG 1,000 MG/7.5 ML SYR IV SCH (02:18)
[2023-08-16] MEDS: ACETAMINOPHEN 500 MG TAB PO SCH (05:41)
[2023-08-16 06:36] LABS: Hematocrit (blood only) 31.8 % (37.0-47.0); Hemoglobin 10.4 g/dl (12.0-16.0); Mean Corpuscular Hgb Conc 32.7 g/dL (32.0-36.0); Mean Corpuscular Volume 94.9 fL (80.0-100.0); Mean Platelet Volume 12.7 fL (9.4-12.4); Platelet Count 172 K/uL (130-400); RDW Coefficient of Variation 13.1 % (11.5-14.5); RDW Standard Deviation 44.9 fL (36.4-46.3); Red Blood Count 3.35 M/uL (4.20-5.40); White Blood Count 19.84 K/ul (4.8-10.8)
[2023-08-16 07:06] LABS: Calcium 8.4 mg/dl (8.6-10.3); Potassium 4.1 mmol/L (3.5-5.1)
[2023-08-16 07:11] LABS: BUN Creatinine Ratio 22.1 (10-20); Creatinine Clr Calc Pharmacy 41.9 ml/min; Est GFR (African American) 71.9 ml/min
[2023-08-16] MEDS: CeleBREX 200 MG CAP PO SCH (07:59)
[2023-08-16] MEDS: DOCUSATE SODIUM 100 MG CAP PO SCH (07:59)
[2023-08-16] MEDS: ASPIRIN 81 MG ECTAB PO SCH (07:59)
--- NOTE | 2023-08-16 08:27 | Orthopedic Progress Note ---
Date of Service August 16, 2023 Assessment & Plan (1) S/P total knee arthroplasty: Plan: POD#1 left TKA -PT/OT -Pain management as written -DVT prophylaxis-SCDs, TEDs, ASA 81mg BID -AM labs- Hgb 10.4 from 12 preop, acute blood loss anemia due to surgical loss vs dilutional. Leukocytosis likely reactive due to surgical stress vs perioperative steroids. Patient is asymptomatic. -D/C planning-plan on d/c home with home health after therpay today Admission and Anticipated Discharge Date Admission Date: August 15, 2023 Subjective Patient is POD1 left TKA. She is felling well this morning. Minimal pain. No current complaints. Denies chest pain, sob, dizziness, PADILLA, fever/chills, n/v/d. Review of Systems Review of Systems: All systems reviewed & are unremarkable except as noted in Subjective Physical Exam Physical Exam: Left knee: Dressing is c/d/i. No calf tenderness. Toes mobile with good DF. Able to do SLR. Distally n.v status and sensation grossly intact. Results & Data Vital Signs (Past 12 Hours) Vital Signs Temp Pulse Resp BP Pulse Ox O2 Del Method 08/16/23 03:14 36.8 C 79 16 124/61 94 Room Air 08/15/23 23:13 36.9 C 78 17 123/61 96 Room Air (1) S/P total knee arthroplasty Laterality: left Qualified Code(s): Z96.652 - Presence of left artificial knee joint
[2023-08-16] MEDS ORDERED: amLODIPine BESYLATE 5 MG TAB PO SCH (09:00)
[2023-08-16] MEDS ORDERED: ATORVASTATIN 20 MG TAB PO SCH (09:00)
[2023-08-16] MEDS ORDERED: CEROVITE ADV FORMULA TAB PO SCH (09:00)
--- NOTE | 2023-08-16 12:18 | Discharge Summary ---
Date of Service August 16, 2023 Admission HPI Per Admitting Provider 83yo female with PMHx significant for HTN who presents with ongoing left knee pain. Pain is interfering with her daily activity. She has failed conservative measures. She would like to proceed with surgery. Patient denies headaches, sweats, fevers, chills, double vision, blurred vision, cough, sore throat, dysphagia, chest pain, sob, wheezing, n/v/d/c, numbness, tingling, fatigue, urinary symptoms, mood disorders. ROS positive for left knee pain and stiffness. Admission Exam Per Admitting Provider Constitutional: well developed and well nourished; no acute distress Eyes: PERRL, conjunctivae normal, anicteric sclerae ENMT: external ear and nose normal, oropharynx normal Neck: trachea midline, no thyromegaly Respiratory: normal respiratory effort, lungs clear to auscultation Cardiovascular: RRR, no murmur, no edema Musculoskeletal: Left knee: Valgus alignment. Mild effusion. ROM 0-120 degrees. Stable to valgus and varus stress test. Skin: no rashes, warm and dry Neurologic: patellar DTR's 2+ bilat, sensation intact Psychiatric: A+Ox3, euthymic affect Principal Diagnosis left knee osteoarthritis Discharge Exam Left knee: Dressing is c/d/i. No calf tenderness. Toes mobile with good DF. Able to do SLR. Distally n.v status and sensation grossly intact. Discharge Data Allergies Allergy/AdvReac Type Severity Reaction Status Date / Time codeine Allergy Unknown Dizziness, Verified 07/16/23 09:41 mental changes Consultations 08/12/23 15:03 Consult Hospitalist Routine Procedures Performed Operation Date: 08/15/23 09:40 Actual Procedures p Left Total Knee Arthroplasty(Left) - Sree Moya MD Ordered Studies 08/15/23 05:00 US - OR guided needle placemen Routine Hospital Course (1) S/P total knee arthroplasty: POD#2 left TKA -PT/OT -Pain management as written -DVT prophylaxis-SCDs, TEDs, ASA 81mg BID -AM labs- Hgb 10.4 from 12 preop, acute blood loss anemia due to surgical loss vs dilutional. Leukocytosis likely reactive due to surgical stress vs periopera tive steroids. Patient is asymptomatic. -D/C planning-plan on d/c home with home health after therapy today Lab Results 08/16/23 Range/Units 05:48 WBC 19.84 H (4.8-10.8) K/ul RBC 3.35 L (4.20-5.40) M/uL Hgb 10.4 L (12.0-16.0) g/dl Hct 31.8 L (37.0-47.0) % MCV 94.9 (80.0-100.0) fL MCH 31.0 (25.0-34.0) pg MCHC 32.7 (32.0-36.0) g/dL RDW Std Deviation 44.9 (36.4-46.3) fL RDW Coeff of Shai 13.1 (11.5-14.5) % Plt Count 172 (130-400) K/uL MPV 12.7 H (9.4-12.4) fL Sodium 138 (136-145) mmol/L Potassium 4.1 (3.5-5.1) mmol/L Chloride 107 (98-107) mmol/L Carbon Dioxide 25 (21-32) mmol/L Anion Gap 6 (3-11) BUN 19 (6-23) mg/dl Creatinine 0.86 (0.6-1.2) mg/dl Est Cr Clr Drug Dosing 41.9 ml/min Est GFR ( Amer) 71.9 ml/min Est GFR (Non-Af Amer) 62.0 ml/min BUN/Creatinine Ratio 22.1 H (10-20) Glucose 125 H (70-99(Fasting)) mg/dl Calcium 8.4 L (8.6-10.3) mg/dl Total Time Total Time Spent Total Time Spent (In Minutes): 20 Discharge Plan Discharge Items Patient Disposition: Home - Home Health Services Reason For Visit: Left Knee Osteoarthritis Discharge Diagnosis: Left knee osteoarthritis Activity: Per Instructions section Non-emergency contact: Surgeon Call non-emergency contact if: you have any medication questions, your pain is not controlled, your pain is concerning for you, you have a fever, your temperature is above 101, your wound has increased redness and your wound has increased drainage Follow-up/Referrals: Campos Victoria MD [Primary Care Provider] - Diet: Regular Addtl Attending Provider Instructions: ACTIVITY RECOMMENDATIONS: SELF CARE INSTRUCTIONS AFTER TOTAL KNEE REPLACEMENT A. You may need to continue a physical therapy program after discharge from the hospital. There are several options available to you. Your doctor will assist you in selecting the best one for you. 1. An out-patient facility 2 to 3 times a week for therapy or home therapy. 2. Continue working on all exercises taught to you in the hospital. Your goals should be to increase bending of your knee to 90 degrees and beyond and to fully straighten your knee. B. You may progress at your own pace from walking with a walker or crutches to a cane; then to no assistive devices. C. Make walking a part of your daily routine. Be up as much as comfortable with rest periods throughout the day. Rest with leg elevation is very important. Use the ice wrap frequently for the first 3-4 weeks. D. There are no restrictions on activities. You may ride in a car, shop, participate in aerospace medicine physician and all social activities. E. Wear the long elastic stockings (KINSEY hose) 20 hours a day for 2 weeks after surgery. They can be removed several times a day for laundering and for a bath. F. You may shower, no tub baths until cleared by your doctor. SPECIAL CARE INSTRUCTIONS: VERY IMPORTANT TO READ AND REVIEW A. There are a few signs you need to watch for after you are home. Call [facility] if you notice any of the followin. Increased severe knee pain. Some pain is expected especially when you exercise. 2. Increased swelling in your leg or knee; pain or swelling of the calf muscle in either lower leg. 3. Any fluid drainage from the incision. 4. Shortness of breath or chest pain. B. Please call [facility] at if you have any concerns or questions about your operation or recovery. The doctor or his nurse will return your call promptly. C. You must take antibiotics before dental work, bladder, bowel or other surgery. Your doctor will provide you with a permanent care to carry describing this precaution. IMPORTANT: * REMEMBER TO TAKE ASPIRIN, 81 MG, TWICE DAILY FOR 4 WEEKS UNLESS OTHERWISE DIRECTED. THIS IS YOUR BLOOD THINNER. * HIGH RISK PATIENTS MAY BE PRESCRIBED A STRONGER BLOOD THINNER. THIS WILL BE PROVIDED AT DISCHARGE. * CALL IF INCREASED PAIN, REDNESS, DRAINAGE OR FEVER GREATER THAT 101. * WEAR KINSEY HOSE 20 HOURS PER DAY FOR 2 WEEKS. You should perform daily dressing changes. You may get incision wet in the shower after 72 hours. Do not soak or submerge incision IF INCISION IS LEAKING THROUGH DRESSING, CALL THE OFFICE . FOLLOW UP VISIT: If appointment is not already scheduled: Please call [facility] to make a follow-up appointment for 2 weeks after your surgery at . Stand-Alone Forms: My [facility], Smoking Cessation Medications and DC Order Prescriptions: New celecoxib [Celebrex] 200 mg Capsule 200 mg PO BID Qty: 60 0RF aspirin 81 mg Tablet,Delayed Release (Dr/Ec) 81 mg PO BID Qty: 60 0RF acetaminophen [Tylenol Extra Strength] 500 mg Tablet 1,000 mg PO Q8 Qty: 60 0RF oxycodone 5 mg Tablet 5 - 10 mg PO .Q4h-6h MDD 6 PRN (Reason: pain) Qty: 30 0RF Rx Instructions: Ongoing therapy, Dr. Moya supervising Continued amlodipine 10 mg Tablet 10 mg PO QAM Women's One Daily 18 mg iron-400 mcg-500 mg Ca Tablet 1 tab PO QAM vitamin E 1 cap PO QAM atorvastatin 20 mg Tablet 20 mg PO DAILY Admission Data Admit Date/Time: 08/15/23 11:42 Attending Provider: Sree Moya Admit Provider: Sree Moya Primary Care Provider: Campos Victoria Other Providers: Saurabh Mccormick Other Interventions: Discharge Summary Assessment (RN) Last Done: 08/16/23 10:43
== END 2023-08-16 11:38 | disposition home health service (06) ==
LOC: ASU 07:54 → 3E 07:54